=== PATIENT | male | born 1990 | race African-American/Black ===

== ENCOUNTER 2021-07-06 16:59 | Emergency (ER) | payer SELFPAY ==
[~2021-07-06] VITALS: Ht 170.2 cm; Wt 82.0 kg
[2021-07-06] MEDS ORDERED: SODIUM CHLORIDE 0.9% 1,000 ML IV ONE (17:30)
[2021-07-06 17:46] LABS: HEMATOCRIT. 41.5 % (42.0-52.0); HEMOGLOBIN. 14.3 g/dL (14.0-18.0); MEAN CORPUSCULAR HEMOGLOBIN 31.5 pg (28.0-32.0); MEAN CORPUSCULAR VOLUME 91.8 fL (80.0-94.0); MEAN PLATELET VOLUME 8.7 fl (7.4-10.4); PLATELET 234 x1000/uL (130-400); RED BLOOD CELL COUNT 4.52 mill/uL (4.7-6.1); RED CELL DISTRIBUTION WIDTH 13.3 % (11.6-14.6)
[2021-07-06 18:07] LABS: ETHANOL BLOOD 59 mg/dL
[2021-07-06 18:29] LABS: CHLORIDE 109 mEq/L (98-107)
[2021-07-06 19:09] LABS: CLARITY URINE CLEAR (CLEAR); COLOR URINE YELLOW (YELLOW); KETONES URINE NEGATIVE (NEGATIVE); LEUKOCYTE ESTERASE URINE NEGATIVE (NEGATIVE); NITRITE URINE NEGATIVE (NEGATIVE); OCCULT BLOOD URINE TRACE (NEGATIVE); PROTEIN URINE 1+ (NEGATIVE); SPECIFIC GRAVITY URINE 1.007 (1.005-1.030); UROBILINOGEN URINE 0.2 E.U./dL (0.2-1.0)
[2021-07-06 19:20] LABS: *AMPHETAMINES SCREEN URINE PRESUMTIVE POSITIVE (NEGATIVE)
[2021-07-06 19:21] LABS: *BARBITURATES SCREEN URINE NEGATIVE (NEGATIVE); *BENZODIAZEPINES SCREEN URINE NEGATIVE (NEGATIVE); *COCAINE SCREEN URINE NEGATIVE (NEGATIVE); CANNABINOID URINE SCREEN NEGATIVE (NEGATIVE); METHADONE URINE SCREEN NEGATIVE (NEGATIVE); OPIATES URINE SCREEN NEGATIVE (NEGATIVE)
[2021-07-06 19:22] LABS: PHENCYCLIDINE URINE SCREEN NEGATIVE (NEGATIVE)
[2021-07-06] MEDS ORDERED: NALO4SPR BOTHNSTRLS (19:40)
[2021-07-06 20:00] VITALS: BP 128/71
[2021-07-06 20:27] LABS: PLATELET ESTIMATE NORMAL
== END 2021-07-06 20:22 | disposition home or self-care (01) ==
LOC: ER 16:59
DX: T40.411A Poisoning by fentanyl or fentanyl analogs, accidental (unintentional), initial encounter (principal); Y92.9 Unspecified place or not applicable
CPT/HCPCS: 36415; 71045; 80053; 80305; 80320; 81003; 85025; 93005; 96360; 96361; 99285; J7030; G0480

== ENCOUNTER 2022-10-23 15:44 | Emergency (ER) | payer MEDICAID ==
[~2022-10-23] VITALS: Ht 177.8 cm; Wt 80.0 kg
[~2022-10-23 15:44] MED LIST: NALO4SPR BOTHNSTRLS
[2022-10-23 15:48] VITALS: BP 130/85
[2022-10-23] MEDS ORDERED: SODIUM CHLORIDE 0.9% 1,000 ML IV ONE (16:00)
[2022-10-23] MEDS ORDERED: NALO4SPR BOTHNSTRLS (16:15)
== END 2022-10-23 16:00 | disposition home or self-care (01) ==
LOC: ER 15:44
DX: T40.411A Poisoning by fentanyl or fentanyl analogs, accidental (unintentional), initial encounter (principal); X58.XXXA Exposure to other specified factors, initial encounter; F19.10 Other psychoactive substance abuse, uncomplicated
CPT/HCPCS: 93005; 99283; J7030